=== PATIENT | male | born 1995 | race Caucasian/White ===

== ENCOUNTER 2017-06-25 21:30 | Emergency (ER) | payer OTHER ==
[2017-06-25 21:45] VITALS: BP 124/83
--- NOTE | 2017-06-25 22:06 | UC ---
Throat Pain/Nasal Guy HPI - HPI Summary HPI Summary: Nasal congestion, ST, [place], fatigue, cough starting 4 days ago. Mild chills a couple nights ago, no measured fever. Denies trouble breathing or wheezing. - History of Current Complaint Chief Complaint: UCRespiratory Stated Complaint: SINUS,COUGH Time Seen by Provider: 06/25/17 21:45 Hx Obtained From: Patient Onset/Duration: Gradual Onset, Lasting Days Severity: Mild Cough: Nonproductive Associated Signs & Symptoms: Positive: Sinus Discomfort, Nasal Discharge. Negative: Fever, Vomiting - Allergies/Home Medications Allergies/Adverse Reactions: Allergies Allergy/AdvReac Type Severity Reaction Status Date / Time No Known Allergies Allergy Verified 06/25/17 21:44 Home Medications: Home Medications NK [No Home Medications Reported] 06/25/17 [History Confirmed 06/25/17] PMH/Surg Hx/FS Hx/Imm Hx Previously Healthy: Yes - Surgical History Surgical History: None - Family History Known Family History: Negative: Blood Disorder - Social History Occupation: Student Lives: Alone Alcohol Use: Rare Substance Use Type: None Smoking Status (MU): Never Smoked Tobacco Review of Systems Constitutional: Negative Skin: Negative Eyes: Negative ENT: Sore Throat, Nasal Discharge, Sinus Congestion Respiratory: Cough Cardiovascular: Negative Gastrointestinal: Negative Genitourinary: Negative Motor: Negative Neurovascular: Negative Musculoskeletal: Negative Neurological: Negative Psychological: Negative Is Patient Immunocompromised?: No All Other Systems Reviewed And Are Negative: Yes Physical Exam Triage Information Reviewed: Yes Appearance: Well-Appearing, No Pain Distress, Well-Nourished Vital Signs: Initial Vital Signs Temp 99.0 F 06/25/17 21:42 Pulse 85 06/25/17 21:42 Resp 16 06/25/17 21:42 BP 124/83 06/25/17 21:42 Pulse Ox 100 06/25/17 21:42 Vital Signs Reviewed: Yes Eye Exam: Normal Eyes: Positive: Conjunctiva Clear ENT: Positive: Hearing grossly normal, Pharynx normal, Nasal congestion - marked , TMs normal. Negative: Tonsillar swelling - s/p tonsillectomy Dental Exam: Normal Neck exam: Normal Neck: Positive: Supple, Nontender, No Lymphadenopathy Respiratory Exam: Normal Respiratory: Positive: Chest non-tender, Lungs clear, Normal breath sounds, No respiratory distress, No accessory muscle use Cardiovascular Exam: Normal Cardiovascular: Positive: RRR, No Murmur Musculoskeletal Exam: Normal Neurological Exam: Normal Neurological: Positive: Alert Psychological Exam: Normal Skin Exam: Normal Throat Pain/Nasal Course/Dx - Differential Dx/Diagnosis Provider Diagnoses: URI, likely viral Discharge - Discharge Plan Condition: Stable Disposition: HOME Patient Education Materials: Upper Respiratory Infection (ED) Additional Instructions: Your symptoms sound quite viral at this time. I do expect that you should see some gradual improvement within the next few days, however. pseudoephedrine is the most likely OTC medicine to help with your symptoms at this point. Call or return if you develop increasing fever, ear pain, shortness of breath, chest pain, bloody sputum, or otherwise worsen. If you have not improved at all after several days, contact your primary care physician or return here.
== END 2017-06-25 22:20 | disposition home or self-care (01) ==
LOC: UCEAST 21:30
DX: J06.9 Acute upper respiratory infection, unspecified (principal)
CPT/HCPCS: 99201; G0463